=== PATIENT | male | born 1950 | race Caucasian/White ===

== ENCOUNTER 2020-09-24 01:15 | Emergency (ER) | payer BC ==
[~2020-09-24] VITALS: Ht 185.4 cm; Wt 86.2 kg
[2020-09-24 01:30] VITALS: BP 138/87
--- NOTE | 2020-09-24 01:41 | NUR ---
70 Y/O MALE PATIENT BIBA C/O SHAKINESS AND AFIB. PER PT, "AROUND MIDNIGHT, I STARTED TO FEEL WEIRD, AND NOT GOOD. I USUALLY HAVE TREMORS LIKE THESE BUT TONIGHT WAS WORST. I STARTED A NEW MEDICATION WHICH IS CARDIZEM 90 MG FROM USUALLY TAKE MOLTAC. I FELT A LITTLE NUMBNESS IN MY LEFT SHOULDER BLADE, BUT IT GOT RESOLVED." A&OX4, GCS 15. DENIES CP, SOB, AND N/V/D. ERMD MADE AWARE. PMH: POST- POLIO SYNDROME, AFIB ALLERGIES: PENICILLIN, CIPRO
--- NOTE | 2020-09-24 01:44 | NUR ---
LAB AT BEDSIDE FOR BLOOD DRAW
[2020-09-24 01:54] LABS: BASOPHILS # (AUTO) 0.1 K/uL (0.00-0.22); BASOPHILS % (AUTO) 0.8 % (0.0-2.0); EOSINOPHILS # (AUTO) 0.1 K/uL (0-0.4); EOSINOPHILS % (AUTO) 1.1 % (0.0-4.0); HEMATOCRIT 41.3 % (36-52); HEMOGLOBIN 14.3 g/dL (12.0-18.0); LYMPHOCYTES # (AUTO) 1.1 K/uL (2.0-11.5); LYMPHOCYTES % (AUTO) 13.9 % (20.5-51.1); MEAN CORPUSCULAR HEMOGLOBIN 29 pg (27-31); MEAN CORPUSCULAR HGB CONC 35 g/dL (33-37); MEAN CORPUSCULAR VOLUME 82.7 fL (80-94); MONOCYTES # (AUTO) 0.6 K/uL (0.8-1.0); MONOCYTES % (AUTO) 7.5 % (1.7-9.3); NEUTROPHILS # (AUTO) 6.3 K/uL (1.8-7.7); NEUTROPHILS % (AUTO) 76.7 % (42.2-75.2); PLATELET COUNT (AUTO) 251 K/uL (140-450); RED CELL DISTRIBUTION WIDTH 14.5 % (11.6-13.7); WHITE BLOOD COUNT (AUTO) 8.2 K/uL (4.8-10.8)
[2020-09-24 02:13] LABS: ALBUMIN 3.4 g/dL (3.4-5.0); ANION GAP 14.8 (8-16); ASPARTATE AMINOTRANSFERASE 14 U/L (15-37); CARBON DIOXIDE 25.8 mmol/L (21-32); CHLORIDE 97 mmol/L (98-107); CREATININE 1.1 mg/dL (0.6-1.3); GLUCOSE 103 mg/dL (74-106); POTASSIUM 3.6 mmol/L (3.5-5.1); SODIUM SERUM 134 mmol/L (136-145); TOTAL BILIRUBIN 0.4 mg/dL (0.0-1.0); UREA NITROGEN, BLOOD 8 mg/dL (7-18)
--- NOTE | 2020-09-24 02:13 | NUR ---
PT TAKEN TO CT VIA VASHTI
[2020-09-24 02:22] LABS: PROTHROMBIN TIME 10.7 secs (10.8-13.4)
--- NOTE | 2020-09-24 07:17 | NUR ---
GIVEN REPORT TO ZAIRA HALL, TRANSFER OF CARE AT THIS TIME
--- NOTE | 2020-09-24 07:26 | NUR ---
Report received from ISABEL Patel. Transfer of care at this time.
[2020-09-24 07:43] VITALS: BP 138/87
--- NOTE | 2020-09-24 07:44 | NUR ---
Patient discharged with v/s stable. Written and verbal after care instructions given and explained. Patient verbalized understanding. Ambulatory with steady gait. All questions addressed prior to discharge. Advised to follow up with PMD.
== END 2020-09-24 07:44 | disposition home or self-care (01) ==
LOC: MED 01:15
DX: R20.2 Paresthesia of skin (principal); I10 Essential (primary) hypertension; R93.0 Abnormal findings on diagnostic imaging of skull and head, not elsewhere classified; Z88.0 Allergy status to penicillin; Z88.1 Allergy status to other antibiotic agents
CPT/HCPCS: 36415; 70450; 71045; 80053; 84484; 85025; 85610; 93005; 99285

== ENCOUNTER 2020-09-26 11:29 | Emergency (ER) | payer BC ==
[~2020-09-26] VITALS: Ht 185.4 cm; Wt 81.6 kg
[2020-09-26 11:45] VITALS: BP 136/65
--- NOTE | 2020-09-26 11:47 | NUR ---
PT SENT TO ER LOBBY TO WAIT FOR BED AND MSE.
== END 2020-09-26 15:09 | disposition home or self-care (01) ==
LOC: MED 11:29
DX: I71.2 Thoracic aortic aneurysm, without rupture (principal); I10 Essential (primary) hypertension; Z88.0 Allergy status to penicillin; Z88.1 Allergy status to other antibiotic agents
CPT/HCPCS: 71250; 99284